=== PATIENT | female | born 1960 | race Hispanic/Latino ===

== ENCOUNTER 2022-06-15 19:01 | Emergency (ER) | payer OTHER ==
[2022-06-15 21:29] LABS: Basophils # (Auto) 0.1 K/mm3 (0.0-0.1); Eosinophils % (Auto) 0.3 % (0.0-4.3); Monocytes # (Auto) 0.5 K/mm3 (0.0-0.8); Monocytes % (Auto) 3.4 % (0.0-7.3)
[2022-06-15] MEDS ORDERED: SODIUM CHLORIDE 0.9% 1000 ML 1,000 ML IV ONE ×2 (21:36→21:37)
[2022-06-15] MEDS ORDERED: ALUM-MAG HYDROXIDE-SIMETHICONE 200-200-20MG/5ML ORAL LIQD 30 ML PO ONE (21:37)
[2022-06-15] MEDS ORDERED: PANTOPRAZOLE 40 MG INJ IV ONE (21:37)
[2022-06-15] MEDS ORDERED: MORPHINE 4 MG/1 ML INJ IV ONE (21:37)
[2022-06-15] MEDS ORDERED: ONDANSETRON 4 MG/2 ML INJ IV ONE (21:37)
[2022-06-15] MEDS ORDERED: METOPROLOL TARTRATE 5 MG/5 ML INJ IV ONE (21:38)
[2022-06-15 21:44] LABS: Hemoglobin 14.5 gm/dl (10.1-14.3); Red Blood Count 4.88 M/mm3 (3.65-5.03)
[2022-06-15 21:45] LABS: Basophils % (Auto) 0.8 % (0.0-1.8); Hematocrit 42.9 % (30.3-42.9); Lymphocytes # (Auto) 1.4 K/mm3 (1.2-5.4); Lymphocytes % (Auto) 10.2 % (13.4-35.0); Mean Corpuscular HGB Conc 34 % (30-34); Mean Corpuscular Volume 88 fl (79-97); Platelet Count 63 K/mm3 (140-440); Red Cell Distribution Width 13.9 % (13.2-15.2)
[2022-06-15 21:47] LABS: Alanine Aminotransferase 9 units/L (7-56); Albumin 4.1 g/dL (3.9-5); Blood Urea Nitrogen 14 mg/dL (7-17); Calcium 9.1 mg/dL (8.4-10.2); Hemolysis Index 33
[2022-06-15 21:49] LABS: BUN/Creatinine Ratio 20
--- NOTE | 2022-06-15 23:05 | XRay Report ---
CHEST 1 VIEW 06/15/2022 9:47 PM INDICATION / CLINICAL INFORMATION: Altered Mental Status. COMPARISON: None available. FINDINGS: SUPPORT DEVICES: None. HEART / MEDIASTINUM: No significant abnormality. LUNGS / PLEURA: No significant pulmonary or pleural abnormality. No pneumothorax. ADDITIONAL FINDINGS: No significant additional findings. IMPRESSION: 1. No acute findings. Signer Name: Chato Jules MD Signed: 06/15/2022 11:01 PM Workstation Name: [email or web address]
[2022-06-15 23:11] LABS: Amphetamine Screen,Urine PRESUMPTIVE NEGATIVE; Benzodiazepines Screen,Urine PRESUMPTIVE NEGATIVE; Bilirubin,Urine NEG (Negative); Blood,Urine NEG (Negative); Cannabinoid Screen,Urine PRESUMPTIVE NEGATIVE; Cocaine Screen,Urine PRESUMPTIVE NEGATIVE; Color,Urine Yellow (Yellow); Methadone Screen,Urine PRESUMPTIVE NEGATIVE; Opiate Screen,Urine PRESUMPTIVE NEGATIVE; Urobilinogen,Urine < 2 mg/dL (<2.0)
[2022-06-15 23:15] LABS: Protein,Urine >500 mg/dL (Negative)
[2022-06-15 23:37] LABS: INR 0.87 (0.87-1.13)
--- NOTE | 2022-06-16 01:58 | Cat Scan Report ---
CT ABDOMEN AND PELVIS WITHOUT AND WITH CONTRAST INDICATION / CLINICAL INFORMATION: pain. TECHNIQUE: Axial CT images were obtained through the abdomen and pelvis before and after IV contrast. All CT scans at this location are performed using CT dose reduction for ALARA by means of automated exposure control. COMPARISON: None available. FINDINGS: LOWER CHEST: Dense mitral annular valve calcifications. Lingular scarring or subsegmental atelectasis . Small sliding type hiatal hernia. LIVER: No significant abnormality. GALLBLADDER/BILIARY: No significant abnormality or evidence for biliary obstruction. PANCREAS: No significant abnormality. SPLEEN: No significant abnormality. ADRENALS: No significant abnormality. KIDNEYS/URETERS: Mild left ureteral dilation and left pelvocaliectasis without rylee hydronephrosis. No urolithiasis. Negative for right-sided hydronephrosis or abnormal contrast enhancement. GI: No acute bowel inflammation, obstruction or evidence for ischemia. APPENDIX: No significant abnormality. PERITONEUM: No pneumoperitoneum, free peritoneal fluid or loculated fluid collection. LYMPH NODES: No significant adenopathy. AORTA / ARTERIES: Mild atherosclerotic calcification without acute abnormality. URINARY BLADDER: Mild distention. Otherwise unremarkable. REPRODUCTIVE ORGANS: No significant abnormality. SKELETAL SYSTEM: Lumbar degenerative spondylosis without acute or destructive osseous process. ADDITIONAL FINDINGS: Small fat-containing umbilical hernia. IMPRESSION: 1. Mild bladder distention with mild left ureteral dilation and pelvocaliectasis. No obstructing ston e, mass or rylee hydronephrosis. 2. No other acute abdominopelvic process. 3. Mild chronic incidental findings, as detailed above. Signer Name: Obi Spain MD Signed: 06/16/2022 1:54 AM Workstation Name: [email or web address]
[2022-06-16 03:59] VITALS: BP 166/97
[2022-06-16] MEDS ORDERED: METOCLOPRAMIDE 10 MG/2 ML INJ IV ONE (04:11)
--- NOTE | 2022-06-16 04:17 | Emergency Department Report ---
ED Abdominal Pain HPI - General Chief Complaint: Abdominal Pain Stated Complaint: HIGH BLOOD SUGAR/HIGH BP/VOMITING PUI?: No Time Seen by Provider: 06/15/22 21:28 Source: EMS Mode of arrival: Ambulatory Limitations: No Limitations - History of Present Illness Initial Comments: abd pain with emesis, high blood spresure , abdominal pain MD Complaint: abdominal pain -: Gradual Location: diffuse Migration to: no migration Severity scale (0 -10): 5 Improves With: nothing Worsens With: nothing Associated Symptoms: nausea, vomiting - Related Data Previous Rx's Medication Instructions Recorded Last Taken Type Clopidogrel [Plavix] 75 mg PO QDAY #30 tablet 06/16/22 Unknown Rx Losartan [Cozaar] 25 mg PO QDAY #30 tablet 06/16/22 Unknown Rx Metoprolol [Lopressor] 25 mg PO DAILY #30 06/16/22 Unknown Rx glipiZIDE [Glucotrol] 5 mg PO QDAY #30 tablet 06/16/22 Unknown Rx metFORMIN [Glucophage] 500 mg PO BID #60 06/16/22 Unknown Rx Allergies Allergy/AdvReac Type Severity Reaction Status Date / Time No Known Allergies Allergy Verified 06/15/22 22:08 ED Review of Systems ROS: Stated complaint: HIGH BLOOD SUGAR/HIGH BP/VOMITING Other details as noted in HPI Constitutional: denies: chills, fever Eyes: denies: eye pain, eye discharge, vision change ENT: denies: ear pain, throat pain Respiratory: denies: cough, shortness of breath, wheezing Cardiovascular: denies: chest pain, palpitations Endocrine: no symptoms reported Gastrointestinal: denies: abdominal pain, nausea, diarrhea Genitourinary: denies: urgency, dysuria, discharge Musculoskeletal: denies: back pain, joint swelling, arthralgia Skin: denies: rash, lesions Neurological: denies: headache, weakness, paresthesias Psychiatric: denies: anxiety, depression Hematological/Lymphatic: denies: easy bleeding, easy bruising ED Past Medical Hx - Past Medical History Previous Medical History?: No Hx Hypertension: No - Social History Smoking Status: Unknown if ever smoked Substance Use Type: None - Medications Home Medications: Home Medications Medication Instructions Recorded Confirmed Last Taken Type Clopidogrel [Plavix] 75 mg PO QDAY #30 tablet 06/16/22 Unknown Rx Losartan [Cozaar] 25 mg PO QDAY #30 tablet 06/16/22 Unknown Rx Metoprolol [Lopressor] 25 mg PO DAILY #30 06/16/22 Unknown Rx glipiZIDE [Glucotrol] 5 mg PO QDAY #30 tablet 06/16/22 Unknown Rx metFORMIN [Glucophage] 500 mg PO BID #60 06/16/22 Unknown Rx ED Physical Exam - General Limitations: No Limitations General appearance: alert, anxious - Head Head exam: Present: atraumatic, normocephalic - Eye Eye exam: Present: normal appearance - ENT ENT exam: Present: mucous membranes moist - Neck Neck exam: Present: normal inspection - Respiratory Respiratory exam: Present: normal lung sounds bilaterally. Absent: respiratory distress - Cardiovascular Cardiovascular Exam: Present: regular rate, normal rhythm. Absent: systolic murmur, diastolic murmur, rubs, gallop - GI/Abdominal GI/Abdominal exam: Present: soft, normal bowel sounds - Extremities Exam Extremities exam: Present: normal inspection - Back Exam Back exam: Present: normal inspection - Neurological Exam Neurological exam: Present: alert, oriented X3 - Psychiatric Psychiatric exam: Present: normal affect, normal mood - Skin Skin exam: Present: warm, dry, intact, normal color. Absent: rash ED Course Vital Signs 06/15/22 06/15/22 06/16/22 20:21 20:28 00:44 Temperature 97.8 F 98.5 F Pulse Rate 90 92 H Respiratory 16 20 20 Rate Blood Pressure 203/113 Blood Pressure 192/105 [Right] O2 Sat by Pulse 96 96 98 Oximetry 06/16/22 03:57 Temperature Pulse Rate 86 Respiratory 16 Rate Blood Pressure Blood Pressure 166/97 [Right] O2 Sat by Pulse 98 Oximetry ED Medical Decision Making - Lab Data Result diagrams: 06/15/22 21:11 06/15/22 21:11 Critical care attestation.: If time is entered above; I have spent that time in minutes in the direct care of this critically ill patient, excluding procedure time. ED Disposition Clinical Impression: Gastroparesis, Medication refill, Uncontrolled hypertension Disposition: 01 HOME / SELF CARE / HOMELESS Is pt being admited?: No Does the pt Need Aspirin: No Condition: Stable Instructions: Abdominal Pain (ED), Hypertension (ED), Hypertension, Adult, [id number], Gastroparesis Prescriptions: Losartan [Cozaar] 25 mg PO QDAY #30 tablet metFORMIN [Glucophage] 500 mg PO BID #60 glipiZIDE [Glucotrol] 5 mg PO QDAY #30 tablet Metoprolol [Lopressor] 25 mg PO DAILY #30 Referrals: PRIMARY CARE, [Primary Care Provider] - 3-5 Days
== END 2022-06-16 06:23 | disposition home or self-care (01) ==
LOC: ED 19:01
DX: K31.84 Gastroparesis (principal); I10 Essential (primary) hypertension; Z76.0 Encounter for issue of repeat prescription; Z79.899 Other long term (current) drug therapy
CPT/HCPCS: 36415; 71045; 74177; 80053; 80307; 81001; 82140; 82550; 83690; 84484; 85025; 85610; 96361; 96374; 96375; 99285; C9113; J2270; J2405; J2765; Q9967